=== PATIENT | female | born 1955 | race Caucasian/White ===

== ENCOUNTER 2017-04-21 07:33 | Outpatient (CLI) | payer BC ==
[2017-04-21 11:01] LABS: ALBUMIN/GLOBULIN RATIO 1.4 (1.0-2.2); BILIRUBIN,TOTAL 1.1 mg/dL (0.2-1.0); CREATININE 0.9 mg/dL (0.4-1.0); TOTAL PROTEIN 7.8 g/dL (6.7-8.2)
[2017-04-21 11:02] LABS: CALCIUM 9.2 mg/dL (8.5-10.3); POTASSIUM 4.2 mmol/L (3.5-5.0)
== END 2017-04-21 07:34 | disposition home or self-care (01) ==
LOC: LAB.F 07:33
PROVIDERS: ATTEND Internal Medicine
DX: E55.9 Vitamin D deficiency, unspecified (principal); Z13.9 Encounter for screening, unspecified
CPT/HCPCS: 36415; 80053; 82306

== ENCOUNTER 2019-09-26 13:31 | Outpatient (CLI) | payer BC ==
[2019-09-26 13:44] LABS: ABNORMAL LYMPHS % (MANUAL) 0 %; BAND NEUTROPHILS % (MANUAL) 0 %
[2019-09-26 17:07] LABS: WHITE BLOOD COUNT 6.1 x10^3/uL (4.8-10.8)
[2019-09-26 17:43] LABS: EOSINOPHILS # (MANUAL) 0.2 10^3/uL (0-0.7); LYMPHOCYTES # (MANUAL) 2.3 10^3/uL (1.5-3.5); LYMPHOCYTES % (MANUAL) 38 %; MONOCYTES # (MANUAL) 0.5 10^3/uL (0.0-1.0)
== END 2019-09-26 13:32 | disposition home or self-care (01) ==
LOC: LAB.S 13:31
PROVIDERS: ATTEND Student in an Organized Health Care Education/Training Program
DX: D72.9 Disorder of white blood cells, unspecified (principal)
CPT/HCPCS: 36415

== ENCOUNTER 2020-03-19 08:44 | Outpatient (CLI) | payer BC | END 2020-03-19 08:45 | disposition home or self-care (01) | LOC: LAB.S 08:44 → LAB 08:45 | PROVIDERS: ATTEND Student in an Organized Health Care Education/Training Program | DX: Z11.59 Encounter for screening for other viral diseases (principal) | CPT/HCPCS: 81599 ==

== ENCOUNTER 2020-09-18 15:26 | Emergency (ER) | payer BC ==
--- NOTE | 2020-09-18 15:36 | ED Physician Documentation ---
PD HPI UPPER EXT INJURY - Stated complaint Stated Complaint: LEFT HAND LAC - Chief complaint Chief Complaint: Laceration - History obtained from History obtained from: Patient - History of Present Illness Location: Left, Finger (index) Type of injury: Laceration (cutting block of cheese at home and accidentally cut finger.) Where injury occurred: Home Timing - onset: Today (just [employer], cut finger and it bled well, so direct pressure and wrapped it and came here.) Timing - details: Abrupt onset, Still present Associated symptoms: No: Weakness, Numbness Similar symptoms before: Has not had sx before Review of Systems Constitutional: denies: Fever Nose: denies: Rhinorrhea / runny nose, Congestion Throat: denies: Sore throat Respiratory: denies: Cough Neurologic: denies: Focal weakness, Numbness PD PAST MEDICAL HISTORY - Past Medical History Past Medical History: No - Present Medications Home Medications: Ambulatory Orders Medication Instructions Recorded Confirmed Alendronate Sodium [Fosamax] 01/06/15 01/06/15 Hydrocodone/Acetaminophen 1 - 2 each PO Q6H PRN #15 tablet 01/07/15 [Hydrocodon-Acetaminophen 5-325] - Allergies Allergies/Adverse Reactions: Allergies Allergy/AdvReac Type Severity Reaction Status Date / Time eggplant Allergy Anaphylaxis Verified 09/18/20 15:33 Sulfa (Sulfonamide Allergy Unknown Verified 09/18/20 15:33 Antibiotics) oxycodone AdvReac Rash Verified 09/18/20 15:33 - Social History Does the pt smoke?: No Smoking Status: Never smoker Does the pt drink ETOH?: Yes Does the pt have substance abuse?: No PD ED PE NORMAL - Vitals Vital signs reviewed: Yes - General General: Alert and oriented X 3, No acute distress, Well developed/nourished - Derm Derm: Normal color, Warm and dry - Extremities Extremities: Other (left index finger with 1.6 cm laceration radial side of middle phalanx. Normal flex and extension. No FB. Does not appear to be into tendon. ) - Neuro Neuro: Alert and oriented X 3, No motor deficit, No sensory deficit, Normal speech Results - Vitals Vitals: Vital Signs - 24 hr 09/18/20 09/18/20 15:29 16:25 Temperature 36.5 C 36.9 C Heart Rate 74 68 Respiratory 17 18 Rate Blood Pressure 147/88 H 122/79 O2 Saturation 99 97 Oxygen O2 Source Room air Procedures - Laceration (location) left index finger Length in cm: 1.6 Wound type: Linear, Into subcut fat Neurovascular status: Sensory intact, Motor intact, Vascular intact Tendon involvement: Tendon intact Anesthesia: Lidocaine 2% with epi Wound Preparation: Irrigated copiously NS, Wound explored, To the base. No: FB identified Skin layer closure: Nylon, Running, Size #-0 - enter number (4), Sutures - enter # (7) Other: Patient tolerated well, Neurovascular intact, Dressing applied, Tetanus booster given Complexity: Simple PD MEDICAL DECISION MAKING - ED course Complexity details: considered differential, d/w patient Departure - Departure Disposition: 01 Home, Self Care Clinical Impression: Finger laceration Qualifiers: Encounter type: initial encounter Finger: index finger Damage to nail status: without damage Foreign body presence: without foreign body Laterality: left Qualified Code(s): S61.211A - Laceration without foreign body of left index finger without damage to nail, initial encounter Condition: Stable Record reviewed to determine appropriate education?: Yes Instructions: ED Laceration Hand Follow-Up: WIL MCCABE MD [Primary Care Provider] - Comments: Tylenol or ibuprofen as needed for pains. Gentle range of motion with the finger in resume normal use of it based on comfort. Suture removal 8 to 10 days. It is okay to wash and shower. Purposely clean it with soap and water twice daily and apply ointment. Recheck if signs of infection. Progress use as tolerated. Discharge Date/Time: 09/18/20 16:29
[2020-09-18 16:25] VITALS: BP 122/79
== END 2020-09-18 16:29 | disposition home or self-care (01) ==
LOC: ED 15:26
DX: S61.211A Laceration without foreign body of left index finger without damage to nail, initial encounter (principal); W26.0XXA Contact with knife, initial encounter; Y93.G1 Activity, food preparation and clean up; Y92.009 Unspecified place in unspecified non-institutional (private) residence as the place of occurrence of the external cause
CPT/HCPCS: 12001; 99282

== ENCOUNTER → 2020-09-28 | Outpatient (CLI) | payer BC ==
--- NOTE | 2020-09-28 08:17 | XRAY Report ---
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 No acute or subacute traumatic injury is seen. INDICATIONS: RIGHT HAND PAIN TECHNIQUE: 3 views of the hand(s) acquired. COMPARISON: None FINDINGS: Bones: No fractures or dislocations. No suspicious bony lesions. Soft tissues: No suspicious soft tissue calcifications. IMPRESSION: There is a mild degree of degenerative osteophytic change with mild joint space narrowing at the dist al inner phalangeal joints. No erosive arthritis is found. Reviewed by: Glen Nolasco MD on 09/28/2020 8:16 AM PST Approved by: Glen Nolasco MD on 09/28/2020 8:16 AM PST Station ID: [id number]
== END ==
LOC: DI.S 07:52
PROVIDERS: ATTEND Physician Assistant
DX: M19.041 Primary osteoarthritis, right hand (principal)